=== PATIENT | male | born 1975 | race Caucasian/White ===

== ENCOUNTER 2016-06-15 08:00 | Outpatient (RCR) | payer BC ==
--- NOTE | 2016-04-19 14:37 | PT/OT/ST INITIAL EVALUATION ---
[facility], [facility]. PHYSICAL/OCCUPATIONAL THERAPY [address] [place] [id number] PLAN OF CARE/ASSESSMENT FOR OUTPATIENT REHABILITATION (Complete for Initial Claims Only) 1. PATIENT'S NAME Miko Acosta 2. ACC. No [id number] 3. REFERRING PHYSICIAN Dr. Purdy 4. PRIMARY DX The patient has a left shoulder arthroscopy and SLAP repair. 5. SECONDARY DX Surgical aftercare of SLAP care of left shoulder. 6. ONSET DATE 01/22/2016 7. REFERRAL DATE 04/14/2016 8. SOC. DATE/TIME 04/19/2016 10:30 9. CHARGES 20 minutes of vasopneumatic compression 30 minute evaluation 15 minute therapeutic exercise 15 minute manual therapy 10. G CODES 11. PRIOR LEVEL OF FUNCTION; PERTINENT HISTORY (Prior therapy results, reason for referral.) S: Prior to therapy the patient consented to today's evaluation and treatment. The patient is a 41-year-old male referred to physical therapy by Dr. Purdy to address surgical aftercare of left arthroscopy and SLAP repair. The patient rates overall and general health as excellent. Primary Complaint: Range of motion restrictions and pain in the left shoulder. Mechanism of injury: The patient does not remember a specific event that caused the left shoulder pain, but he continually had it for a month and so he decided to have surgery on this shoulder for SLAP repair. 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 Pain level: The patient rates current pain level as 3/10 and he describes it as a sharp pain on the outside of the shoulder. Obstacles to delivery of care: Chronicity of effects after the shoulder surgery. Aggravating factors: Include external rotation and movements above head and reaching behind his back. Relieving factors: Ice and resting his shoulder. Diagnostic tests: Not applicable. Past medical history: Includes stomach ulcers. Past surgical history: Other than the shoulder, the patient has no surgical history. Medication list: The patient just takes ulir-def-sslagys medication: Advil, ibuprofen, and Tylenol. Social health habits: The patient is very active. He enjoys playing tennis. Leisure activities: Again the patient enjoys playing tennis and considers his activity level to be high. 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 12. INITIAL ASSESSMENT/SAFETY PRECAUTIONS/MEDICAL COMPLICATIONS (Level of function at start of care. Be specific, use objective measures, list problems.) O: APPEARANCE AND OBSERVATION: The patient has forward rounded shoulders and increase kyphotic curve of the thoracic spine. Ligament hanging tendencies/stooped position whenever in the seated position. PALPATION: The patient has tenderness at the bicipital tendon and posterior capsule. SPECIAL TESTING: With glenohumeral joint glide the patient has general stiffness of the glenohumeral capsule. The posterior capsule was especially tight and appears that the left humeral head is anteriorly translated. RANGE OF MOTION/FLEXIBILITY: Flexion of the right shoulder was within normal limit and the left shoulder was 136 degrees. Abduction on the right was within normal limits, but it was 120 degrees on the left. External rotation on the right was within normal limits. It was 43 degrees on the left. Internal rotation on the right was within normal limits, on the left it was 55 degrees. STRENGTH: External rotation on the right was 4/5, external rotation on the left was 2+/5 and painful. Abduction on the right was 4/5, abduction on the left was 2+/5 and painful. Internal rotation on the right was 4/5 and internal rotation on the left was 3/5 and painful. TODAY'S TREATMENT: As mentioned above, today's treatment consisted of 20 minutes of vasopneumatic compression, 30 minutes of evaluation, 15 minutes of therapeutic exercise, and 15 minutes of manual therapy. 13. INITIAL POC: (Specify procedures, modalities, short and watermelon inspector goals) A: PROGNOSIS: Due to a personal health rating of excellent, the patient has an excellent prognosis for therapy. OUTCOME ASSESSMENT: The patient completed the QuickDASH and he scored 25% disability on this. FUNCTIONAL LIMITATIONS: Overhead reaching, picking up objects with the left upper extremity, reaching behind his back to adjust clothing. INFORMED CONSENT: The diagnosis, prognosis, treatment plan, risks, and expected outcome were discussed with this patient. The patient did agree to today's established plan of care. GOALS: 1. The patient will compliant and independent with home exercise program in 1 week for improved prognosis and increased effectiveness of physical therapy interventions. 2. 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 3. 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 4. 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 P: Plan to treat the patient 1 time a week for 6 weeks in order to address left shoulder joint restrictions. Treatments include, but are not limited to, modalities such as iontophoresis and ultrasound for decreased pain and increase of tissue extensibility. Manual therapy for improved joint arthrokinematics at the joint and improve proprioception at the joint level. Therapeutic exercise for strengthening of the upper extremities and shoulder and thoracic spine. Neural reeducation for improved muscular recruitment and postural retraining. 14. PHYSICIAN SIGNATURE ? ON FILE OR ENTER HERE: 15. DATE: I certify the need for these services furnished under this plan of care and if for partial hospitalization. 16. CERTIFICATION FROM THROUGH
== END 2016-07-18 | disposition home or self-care (01) ==
LOC: PT 08:00
PROVIDERS: ATTEND Orthopaedic Surgery
DX: Z98.890 Other specified postprocedural states (principal); Z47.89 Encounter for other orthopedic aftercare